=== PATIENT | female | born 1975 | race Caucasian/White ===

== ENCOUNTER 2023-06-05 19:58 | Emergency (ER) | payer BC, SELFPAY ==
[2023-06-05 20:17] VITALS: BP 154/94; PULSE 90; RESP 16; TEMP 36.6; O2SAT 100; BMI 31.7
--- NOTE | 2023-06-05 22:59 | ED.GENADULT ---
HPI - General Adult General Date Seen: 06/05/23 Chief complaint: Head Injury/Pain Stated complaint: fell and hit head Time Seen by Provider: 06/05/23 20:28 Source: patient and RN notes reviewed Mode of arrival: ambulatory Limitations: no limitations History of Present Illness HPI narrative: Patient is a 47-year-old, generally healthy woman who is visiting [facility] here with her daughter who is looking at colleges. They were ice skating and she fell backward and hit her head on the ice. She denies loss of consciousness or headache, no neck pain. She is not anticoagulated. She does have a laceration on the back of her scalp which has blood fairly profusely. Bleeding now controlled. She notes mild nausea, no vomiting, no seizure. General health is good, no allergies. She is not sure of her last tetanus, but would like to follow that up with her primary doctor. Declines tetanus today. Related Data Home Medications Medication Instructions Recorded Confirmed leuprolide (3 month) IM 06/05/23 lisinopril .ROUTE 06/05/23 rosuvastatin .ROUTE 06/05/23 Allergies Allergy/AdvReac Type Severity Reaction Status Date / Time No Known Drug Allergies Allergy Verified 06/05/23 20:22 Review of Systems Status of ROS: Reports: 10 or more systems reviewed and unremarkable except as noted in History and below Exam Narrative: Exam Narrative: Vital signs reviewed In general, alert, well-appearing woman. Head: Normocephalic. She has a 1 cm laceration on the back of her scalp, no significant surrounding hematoma, bleeding controlled. Eyes: Sclera clear. Pupils equal reactive. Extraocular movements are full. ENT: No facial trauma. Neck: Nontender to palpation. Neurologic: She is alert, conversant, gait stable moves all extremities equally. Const: Vital Signs, click to edit/add: Vital Signs - 24 hr 06/05/23 20:17 Temperature 97.8 F Pulse Rate [Pulse Oximeter] 90 Respiratory Rate 16 Blood Pressure [Ri ght Upper Arm] 154/94 H Pulse Oximetry 100 Oxygen Delivery Me thod Room Air Documenting provider has reviewed patient's vital signs: yes Course Course ED Course: Procedure note: Wound was cleaned and closed with her apposition and Dermabond. She tolerated this well without immediate complication. No signs of severe head injury here, no red flags suggesting need for imaging. Reviewed routine wound care, how to remove Dermabond in 7-10 days if needed. For signs of infection, or severe head injury, return at any time. At this time, no significant suggestion of concussion but discussed that if she has difficulties with mild headache, nausea, mental fogginess, dizziness etcetera primary follow-up would be reasonable when she gets home Vital Signs Vital signs: Initial Vital Signs Temperature 97.8 F 06/05/23 20:17 Temperature Source Temporal Artery Scan 06/05/23 20:17 Pulse Rate 90 06/05/23 20:17 Respiratory Rate 16 06/05/23 20:17 Blood Pressure 154/94 H 06/05/23 20:17 Blood Pressure Mean 114 H 06/05/23 20:17 Blood Pressure Position Sitting 06/05/23 20:17 Pulse Oximetry 100 06/05/23 20:17 Oxygen Delivery Method Room Air 06/05/23 20:17 Vital Signs Temperature 97.8 F 06/05/23 20:17 Pulse Rate 90 06/05/23 20:17 Respiratory Rate 16 06/05/23 20:17 Blood Pressure 154/94 H 06/05/23 20:17 Pulse Oximetry 100 06/05/23 20:17 Oxygen Delivery Method Room Air 06/05/23 20:17 Temperature 97.8 F 06/05/23 20:17 Pulse Rate 90 06/05/23 20:17 Respiratory Rate 16 06/05/23 20:17 Blood Pressure 154/94 H 06/05/23 20:17 Pulse Oximetry 100 06/05/23 20:17 Oxygen Delivery Method Room Air 06/05/23 20:17 Discharge Plan Discharge Clinical Impression: Closed head injury, Laceration of scalp Patient Disposition: Home, Self-Care Condition: Improved Instructions: Laceration (ED), Head Injury (ED), Skin Adhesive Care (ED) Additional Instructions: Ibuprofen or Tylenol if needed. Glue will slough off over a couple of weeks, but if you would to remove it in 7-10 days after this wound is healed, acetone or antibiotic ointment will both help dissolve the glue. Return for symptoms of significant head injury such as severe headache, vomiting, confusion, or other infection such as significant swelling or increased pain, drainage, fever. Follow up with primary care regarding tetanus as discussed. Prescriptions: No Action rosuvastatin .ROUTE lisinopril .ROUTE leuprolide (3 month) [Lupron Depot (3 month)] IM Follow Up/Referrals: Provider,Not a Local [Primary Care Provider] - Stand Alone Forms: [employer] Info Instructions
== END 2023-06-05 21:34 | disposition home or self-care (01) ==
PROVIDERS: Emergency Provider Emergency Medicine
DX: S01.01XA Laceration without foreign body of scalp, initial encounter (principal); V00.211A Fall from ice-skates, initial encounter; Y93.21 Activity, ice skating
CPT/HCPCS: 12001; 99282; 99284